=== PATIENT | male | born 1970 | race Caucasian/White ===

== ENCOUNTER 2019-06-23 12:00 | Emergency (ER) | payer MEDICAID ==
[~2019-06-23] VITALS: Ht 185.4 cm; Wt 85.0 kg
--- NOTE | 2019-06-23 12:15 | NUR ---
PANDA HU[facility]RIES. PT BROUGHT IN AFTER POLICE CALLED KRISTEL TO BRING TO HOSPITAL FOR ETOH. PT AMBULATED WITH ASSIST TO [facility], PER KRISTEL. PT CONNECTED TO MONITORING. FALL PRECAUTIONS IN PLACE. CALL LIGHT IN REACH. AT BEDSIDE. PT TO BE MTF.
--- NOTE | 2019-06-23 13:15 | NUR ---
PT SLEEPING ON [place]. CAMEL[place].
--- NOTE | 2019-06-23 14:00 | NUR ---
ATTEMPTED TO AMBULATED PT. PT UNSTEADY ON FEET, PT LAYING BACK IN BED AND CONNECTED TO MONITORING. CALL LIGHT IN REACH.
--- NOTE | 2019-06-23 14:20 | NUR ---
PT READJUSTED FOR LOW OXYGEN. OXYGEN RIGHT BACK UP AFTER ADJUSTED. NADN.
[2019-06-23 14:55] VITALS: BP 119/83
--- NOTE | 2019-06-23 15:30 | NUR ---
ATTEMPTED PT TO AMBULATED. PT UNSTEADY ON FEET. PT COULD NOT AMBULATE GREATER THAN A FEW FEET WITHOUT WEAVING
--- NOTE | 2019-06-23 16:25 | NUR ---
PT GIVEN DC PAPER WORK. WAS GETTING DRESSED AND DECIDED TO LAY BACK DOWN ON THE GURNEY.
--- NOTE | 2019-06-23 16:35 | NUR ---
Patient/Caregiver given discharge instructions and they have confirmed that they understand the instructions. Patient ambulatory with steady gait.
== END 2019-06-23 16:36 | disposition home or self-care (01) ==
LOC: ED 16:30
DX: F10.120 Alcohol abuse with intoxication, uncomplicated (principal); Y90.9 Presence of alcohol in blood, level not specified
CPT/HCPCS: 99283

== ENCOUNTER 2019-06-28 19:00 | Emergency (ER) | payer MEDICAID ==
[~2019-06-28] VITALS: Ht 177.8 cm; Wt 80.0 kg
--- NOTE | 2019-06-28 19:18 | NUR ---
PT TO ROOM WITH EMS WITH C/O ETOH AND UNABLE TO WALK, PT IN NAD AT THIS TIME FSBS 93 WITH HOSP GLUCOMETER, 1 LITER OF FLUID GIVEN BY EMS PIV IN PLACE, KRISTEL'S FSBS READ 'VICTORIANO'MD AT BS AND NOTIFIED SEE NEW ORDERS
[2019-06-28] MEDS ORDERED: THIAMINE 100MG TABLET ONE (19:26)
[2019-06-28] MEDS ORDERED: THIAMINE 100MG TABLET PO ONE (19:30)
--- NOTE | 2019-06-28 20:14 | NUR ---
PT SLEEPING IN NAD AT THIS TIME
--- NOTE | 2019-06-28 22:42 | NUR ---
CONTINUES TO SLEEP IN NAD AT THIS TIME
[2019-06-28 22:49] VITALS: BP 124/78
== END 2019-06-29 01:26 ==
LOC: ED 23:36
DX: F10.129 Alcohol abuse with intoxication, unspecified (principal); Y90.0 Blood alcohol level of less than 20 mg/100 ml
CPT/HCPCS: 36415; 80047; 82962; 99283

== ENCOUNTER 2019-06-29 11:42 | Emergency (ER) | payer MEDICAID ==
[~2019-06-29] VITALS: Ht 185.4 cm; Wt 87.0 kg
--- NOTE | 2019-06-29 12:37 | NUR ---
PT RESTING IN BED, WARM BLANKETS PROVIDED. VITALS WNL. NAD NOTED.
[2019-06-29 14:48] VITALS: BP 119/62
--- NOTE | 2019-06-29 14:53 | NUR ---
REPORT FROM JANNETTE Hoover RN. PATIENT ASLEEP IN [facility]. EQUAL RISE AND FALL OF CHEST. AND NOTED AT THIS TIME.
--- NOTE | 2019-06-29 16:00 | NUR ---
PATIENT ASLEEP IN [facility]. EQUAL RISE AND FALL OF CHEST. NAD NOTED AT THIS TIME.
--- NOTE | 2019-06-29 17:05 | NUR ---
PATIENT ASLEEP IN [facility]. EQUAL RISE AND FALL OF CHEST. AND NOTED AT THIS TIME. PT RESPONSIVE TO VERBAL STUMLI. CONTINUES TO BE ALTERED. SLURRS ANSWERS AND ANSWERS ARE NOT APPROPRIATE.
--- NOTE | 2019-06-29 17:14 | NUR ---
PT UP AT EDGE OF BED READY TO GO. ABLE TO AMBULATE WITH STEADY GAIT. ARTICULATING WELL NOW.
--- NOTE | 2019-06-29 17:19 | NUR ---
PT AMBULATING THROUGH THE HALLS. PT STATED: "I AM LOOKING FOR AN EXIT. I AM LEAVING RIGHT NOW." ASKED PT IF HE COULD WAIT FOR A DISCHARGE. PT STATED: "SHOW ME HOW TO GET OUT OF HERE."
== END 2019-06-29 17:24 | disposition home or self-care (01) ==
LOC: ED 17:15
DX: F10.220 Alcohol dependence with intoxication, uncomplicated (principal); Y90.9 Presence of alcohol in blood, level not specified
CPT/HCPCS: 99283

== ENCOUNTER 2019-07-16 18:17 | Emergency (ER) | payer MEDICAID ==
[~2019-07-16] VITALS: Ht 185.4 cm; Wt 100.0 kg
--- NOTE | 2019-07-16 19:02 | NUR ---
PT AMBULATORY TO RESTROOM AND BACK TO HIS CHAIR. PT STANDING EATING A SANDWICH. PT GIVEN BUS VOUCHER. PT VERBALLY AGGRESSIVE AND NON COOPERATIVE
[2019-07-16 19:05] VITALS: BP 119/74
--- NOTE | 2019-07-16 19:05 | NUR ---
PT VERBAL INSULTS INCREASING. SECURITY CALLED TO ASSIST PT OUT.
== END 2019-07-16 19:20 | disposition home or self-care (01) ==
LOC: ED 19:14
DX: S00.81XA Abrasion of other part of head, initial encounter (principal); F10.120 Alcohol abuse with intoxication, uncomplicated; F17.200 Nicotine dependence, unspecified, uncomplicated; X58.XXXA Exposure to other specified factors, initial encounter; Y93.89 Activity, other specified; Y92.89 Other specified places as the place of occurrence of the external cause; Y99.8 Other external cause status
CPT/HCPCS: 99283

== ENCOUNTER 2019-08-03 12:37 | Emergency (ER) | payer MEDICAID ==
[~2019-08-03] VITALS: Ht 188 cm; Wt 82.3 kg
--- NOTE | 2019-08-03 12:42 | NUR ---
49 Y/O MALE ARRIVING VIA EMS FROM STREETS TODAY FOR GROSS ETOH INTOXICATION. PT WANTS TO GET HELP WITH DETOXING. 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 PT HAS NO S/SX OF [place] AND IS A/OX4 AND [employer] 15. PT ABLE TO AMBULATED TO CHAIR. WILL MONITOR CLOSELY. PT CLOSE TO NURSE DESK FOR MONITORING. AWAITING FURTHER ORDERS.
--- NOTE | 2019-08-03 12:51 | NUR ---
Pt had labs drawn. Tolerated well. Pt rambling about football statistics.
[2019-08-03] MEDS ORDERED: THIAMINE 100MG TABLET ONE (12:55)
[2019-08-03 12:56] LABS: BASOPHILS # (AUTO) 0.02 x10^3/uL (0-0.1); BASOPHILS % (AUTO) 0 % (0-1); EOSINOPHILS % (AUTO) 2 % (1-7); LYMPHOCYTES % (AUTO) 54 % (22-44); MD NO; MEAN CORPUSCULAR HEMOGLOBIN 34.4 pg (27.5-34.5); MEAN CORPUSCULAR HGB CONC 33.6 g/dL (33.2-36.2); MEAN CORPUSCULAR VOLUME 102.3 fL (81-97); MEAN PLATELET VOLUME 7.4 fL (7.4-10.4); MONOCYTES % (AUTO) 8 % (2-9); NEUTROPHILS # (AUTO) 2.31 x10^3/uL (1.8-6.8); NEUTROPHILS % (AUTO) 36 % (42-75); PLATELET COUNT 165 x10^3/uL (130-400); RED BLOOD COUNT 4.42 x10^6/uL (4.38-5.82); RED CELL DISTRIBUTION WIDTH 14.4 % (9.4-14.8)
[2019-08-03] MEDS ORDERED: THIAMINE 100MG TABLET PO ONE (13:00)
[2019-08-03 13:06] LABS: ANION GAP 9 mmol/L (5-15); CHLORIDE 107 mmol/L (98-107); CREATININE 1.57 mg/dL (0.7-1.3)
--- NOTE | 2019-08-03 13:23 | NUR ---
Pt in bed resting. NADN. Pt unable to ambulate safely at this time.
--- NOTE | 2019-08-03 13:31 | NUR ---
Pt refusing to lie on back to do bp reading. Pt informed that providing low reading. Pt verbalized "I dont care"
[2019-08-03 14:10] VITALS: BP 104/53
--- NOTE | 2019-08-03 14:51 | NUR ---
Pt in bed sitll unable to ambulate safely.
--- NOTE | 2019-08-03 15:20 | NUR ---
PT AMBULATING SAFELY, WISHING TO GO HOME. TAXI VOUCHER WILL BE PROVIDED.
--- NOTE | 2019-08-03 15:20 | NUR ---
Patient/Caregiver given discharge instructions and they have confirmed that they understand the instructions. Patient ambulatory with steady gait.
== END 2019-08-03 15:25 | disposition home or self-care (01) ==
LOC: ED 15:19
DX: F10.129 Alcohol abuse with intoxication, unspecified (principal); I10 Essential (primary) hypertension; F17.200 Nicotine dependence, unspecified, uncomplicated; Y90.9 Presence of alcohol in blood, level not specified
CPT/HCPCS: 36415; 80048; 85025; 99283

== ENCOUNTER 2019-08-19 10:20 | Emergency (ER) | payer MEDICAID ==
[~2019-08-19] VITALS: Ht 185.4 cm; Wt 84.0 kg
--- NOTE | 2019-08-19 10:29 | NUR ---
BIBA. REPORT RECEIVEF [facility]. +ETOH. AOX4. PT STATES" I CAN'T WALK" PT DENIES ANY OTHER SYMPTOMS AT THIS TIME. BP/SPO2 MONITORS IN PLACE. CALL LIGHT WITHIN REACH. EDMD AT BEDSIDE TO EVALUATE AT THIS TIME.
--- NOTE | 2019-08-19 11:14 | NUR ---
PT SLEEPING IN [facility]. RESPS EVEN AND UNLABORED. BP/SPO2 MONITORS IN PLACE. CALL LIGHT WITHIN REACH.
[2019-08-19 12:03] VITALS: BP 102/72
--- NOTE | 2019-08-19 12:04 | NUR ---
urinal at bedside at this time.
== END 2019-08-19 13:23 | disposition left against medical advice (07) ==
LOC: ED 10:26
DX: F10.120 Alcohol abuse with intoxication, uncomplicated (principal); I10 Essential (primary) hypertension; Y90.0 Blood alcohol level of less than 20 mg/100 ml
CPT/HCPCS: 99283